=== PATIENT | male | born 1935 | race Caucasian/White ===

== ENCOUNTER 2020-05-09 23:18 | Emergency (ER) | payer OTHER, MEDICARE ==
[~2020-05-09] VITALS: Ht 172.7 cm; Wt 75.0 kg
== END 2020-05-09 23:58 | disposition home or self-care (01) ==
LOC: ER 23:18
DX: K40.90 Unilateral inguinal hernia, without obstruction or gangrene, not specified as recurrent (principal); Z98.890 Other specified postprocedural states; Z88.0 Allergy status to penicillin
CPT/HCPCS: 99284